=== PATIENT | male | born 1995 | race African-American/Black ===

== ENCOUNTER 2019-12-20 00:37 | Emergency (ER) | payer OTHER, SELFPAY ==
--- NOTE | ~2019-12-20 | XR_ITS ---
EXAMINATION: XR chest 2V EXAM DATE: 12/20/2019 01:54 INDICATION: Confusion. High blood pressure. Left-sided hemiparesis. Difficulties beaking. Stroke like symptoms. TECHNIQUE: Frontal and lateral projections of the chest obtained and reviewed. There is no prior tong dy for comparison. FINDINGS: The lungs are clear. There are no pleural effusions. The cardiomediastinal silhouette is within normal limits. There is no pneumothorax suspected. The bones and soft tissues are unremarkab le. IMPRESSION: No acute cardiopulmonary findings. Reviewed, dictated and finalized at location A.
--- NOTE | ~2019-12-20 | CT_ITS ---
EXAMINATION: CT brain wo con EXAM DATE: 12/20/2019 01:50 INDICATION: Left-sided paresthesia, difficulty speaking. TECHNIQUE: Spiral CT of the head was performed without contrast. Axial, coronal and sagittal images were reviewed. The dose-length product (DLP) for this examination was 605.33 mGy-cm. The exposure w as tailored according to patient size, and iterative reconstruction (ASIR) was used as additional dos e reduction technique. There is no prior study for comparison. FINDINGS: There is no acute intraparenchymal hemorrhage. No evidence of intraparenchymal brain mass lesion. No evidence of acute infarction. There is no mass effect or midline shift. The ventricles are normal in size. There are no extra-axial collections. There are no acute calvarial fractures. T he orbits are unremarkable. Soft tissue is unremarkable. The visualized sinuses and mastoid air aram ls are well aerated. IMPRESSION: 1. No acute intracranial findings. Reviewed, dictated and finalized at location A.
[2019-12-20 00:45] VITALS: BP 229/114; PULSE 109; RESP 16; TEMP 36.7; O2SAT 100
[2019-12-20] MEDS: LORazepam INJ (*CRX) 2 MG/ML VIAL 1 MG IV PUSH (01:09)
[2019-12-20 01:38] VITALS: BP 199/100; PULSE 104; RESP 22; O2SAT 100
[2019-12-20] MEDS: hydrALAZINE HCL 20 MG/ML VIAL 10 MG IV PUSH (01:40)
[2019-12-20 01:55] LABS: Alanine Aminotransferase 43 U/L (4-50); Albumin Level 4.2 g/dL (3.5-5.1); Alkaline Phosphatase 98 U/L (38-126); Anion Gap 7 mmol/L (8-16); Aspartate Amino Transferase 29 U/L (17-59); Bilirubin,Total 0.2 mg/dL (0.2-1.3); Blood Urea Nitrogen 12 mg/dL (9-20); Calcium 9.3 mg/dL (8.4-10.2); Carbon Dioxide 30 mmol/L (22-30); Chloride 102 mmol/L (98-107); Estimated CRCL calculation 139 ml/min; Estimated Glomerular Filt Rate > 60; Glucose 115 mg/dL (75-110); Potassium 3.2 mmol/L (3.4-5.0); Sodium 139 mmol/L (137-145)
[2019-12-20 01:59] LABS: Basophils Percent Auto 0.3 % (0.2-1.2); Eosinophils Absolute Auto 0.4 K/mm3 (0-0.3); Eosinophils Percent Auto 5.6 % (0-4.4); Hematocrit 40.5 % (42.0-52.0); Hemoglobin 12.8 g/dL (14.0-18.0); Immature Granulocyte Absolute 0.01 K/mm3 (0.00-0.031); Immature Granulocyte Percent A 0.1 % (0-0.5); Lymphocytes Percent Auto 41.3 % (18.3-44.2); Mean Corpuscular HGB Conc 31.6 g/dl (32-36); Mean Corpuscular Hemoglobin 22.9 pg (26-34); Mean Corpuscular Volume 72.3 fl (80-100); Mean Platelet Volume 10.9 fl (7.4-10.4); Monocytes Absolute Auto 0.5 K/mm3 (0.1-0.6); Monocytes Percent Auto 7.1 % (2.6-8.5); Neutrophils Absolute Auto 3.4 K/mm3 (1.3-6.7); Neutrophils Percent Auto 45.6 % (45.5-73.1); Platelet Count Result 284 k/mm3 (150-375); Red Cell Distribution Width 15.7 % (11.5-14.5); White Blood Count 7.5 K/mm3 (4.5-10.0)
[2019-12-20 02:05] LABS: Prothrombin Time 12.5 Seconds (11.1-14.7)
[2019-12-20 02:06] LABS: Partial Thromboplastin Time 24.7 SECONDS (22.3-36.8)
[2019-12-20 02:07] LABS: Troponin I < 0.012 ng/mL (0.000-0.034)
[2019-12-20 02:12] VITALS: BP 152/83; PULSE 103; RESP 21; O2SAT 100
--- NOTE | 2019-12-20 02:18 | ED.NEUROSD ---
HPI - Neuro Symptoms/Deficit General Chief Complaint: Neuro Symptoms/Deficit Stated Complaint: Possible stroke? Time Seen by Provider: 12/20/19 00:52 History of Present Illness HPI Narrative: Patient is a 24-year-old male who presents ER with concerns for possible CVA. Patient was lying in bed. He had finished smoking some marijuana and was talking to his fianc?e about possible life changes. He then began to feel like he had numbness in his left arm. He also then felt like he was having a hard time speaking and could not get his words out. No paralysis of blood in arm or leg. Patient was ambulatory and not ataxic. Patient is very tearful and anxious and shaking all over. Patient reports he is feeling some tightness in his chest and neck related to this. Related Data Home Medications Medication Instructions Recorded Confirmed No Home Medications 12/20/19 12/20/19 Allergies Allergy/AdvReac Type Severity Reaction Status Date / Time No Known Allergies Allergy Verified 12/20/19 00:52 Review of Systems Review of Systems: All systems reviewed & are unremarkable except as noted in HPI and below Constitutional: Constitutional: Denies chills, Denies fever(s) and Denies weakness ENT: Denies nasal congestion and Denies sore throat Cardiovascular: Cardiovascular: Reports chest pain, Denies rapid heart rate and Reports radiating jaw, neck or arm pain Respiratory: Respiratory: Denies cough, Reports dyspnea and Denies wheezing Gastrointestinal: Gastrointestinal: Denies abdominal pain, Denies nausea and Denies vomiting Neurologic: Denies syncope, Denies headache(s), Denies focal weakness and Reports numbness Comments: Difficulty speaking PMFSH Past Medical History Medical History (Updated 12/20/19 @ 03:28 by Jean Beltrán MD) Hypertension Surgical History Surgical History (Updated 12/20/19 @ 02:21 by Jean Beltrán MD) History of orthopedic surgery For sports injuries Social History Social History (Updated 12/20/19 @ 02:22 by Jean Beltrán MD) Smoking status: Never smoker Substance use type: marijuana Gender identity (if verbalized by the patient): Male Exam Narrative: Exam Narrative: GENERAL: Anxious and tearful, well-nourished, and in mild distress. HEAD: Normocephalic, atraumatic. EYES: PERRL and EOMI. ENT: Mucous membranes moist. CHEST: Clear to auscultation. No respiratory distress. HEART: Tachycardic and regular. Normal peripheral pulses. ABDOMEN: Soft, nontender, nondistended. EXTREMITIES: Normal range of motion. No edema. SKIN: Warm, dry, no rash. NEURO: No focal deficits. Clear speech. Cranial nerves II through XII intact. Alert and oriented x3. PSYCH: Anxious and tearful. No hallucinations. Course Course Emergency Course: Patient feels much better. Blood pressure normalized. No difficulty speaking. Discussed that it is felt this is likely anxiety attack due to multiple stressors in his life. Recommend follow-up with PCP and continue blood pressure monitoring. Vital Signs Vital signs: Vital Signs Temperature 98.1 F 12/20/19 00:45 Pulse Rate 109 H 12/20/19 00:45 Respiratory Rate 16 12/20/19 00:45 Blood Pressure 229/114 H 12/20/19 00:45 Pulse Oximetry 100 12/20/19 00:45 Temperature 98.1 F 12/20/19 00:45 Pulse Rate 103 H 12/20/19 02:12 Respiratory Rate 21 H 12/20/19 02:12 Blood Pressure 152/83 H 12/20/19 02:12 Pulse Oximetry 100 12/20/19 02:12 MDM - Neuro Symptoms/Deficit Lab Data Result diagrams: 12/20/19 01:37 12/20/19 01:37 Labs: Lab Results 12/20/19 12/20/19 12/20/19 Range/Units 01:37 01:37 01:37 WBC 7.5 (4.5-10.0) K/mm3 RBC 5.60 (4.6-6.20) M/mm3 Hgb 12.8 L (14.0-18.0) g/dL Hct 40.5 L (42.0-52.0) % MCV 72.3 L (80-100) fl MCH 22.9 L (26-34) pg MCHC 31.6 L (32-36) g/dl RDW 15.7 H (11.5-14.5) % Plt Count 284 (150-375) k/mm3 MPV 10.9 H
[2019-12-20 03:54] LABS: Add Urine Microscopic? YES; Appearance Urine Clear (Clear); Bilirubin Urine Negative (Negative); Blood Urine Negative (Negative); Color Urine Yellow (Yellow); Glucose Urine UA Negative (Negative); Ketones Urine Negative (Negative); Leukocyte Esterase Ur Negative LEU/UL (Negative); Mucus Urine Few /lpf; Nitrate Urine Negative (Negative); Protein Urine 1+ mg/dL (Negative); RBC Urine 0-2 /hpf (0-2); Specific Grav Ur 1.023 (1.001-1.035); Squamous Epithelial Cell Urine Rare /hpf (Few); WBC Urine 0-3 /hpf
[2019-12-20 04:30] VITALS: BP 134/82; PULSE 94; RESP 18; TEMP 36.7; O2SAT 100
== END 2019-12-20 04:31 | disposition home or self-care (01) ==
PROVIDERS: Emergency Provider Emergency Medicine
DX: F41.9 Anxiety disorder, unspecified (principal); I10 Essential (primary) hypertension; R07.89 Other chest pain
CPT/HCPCS: 36415; 70450; 71046; 80053; 81001; 84484; 85025; 85610; 85730; 96374; 96375; 99284; J0360; J2060